=== PATIENT | male | born 1990 | race Caucasian/White ===

== ENCOUNTER 2024-12-14 22:20 | Emergency (ER) | payer MEDICAID, SELFPAY ==
[2024-12-14 22:22] VITALS: BMI 32.5
[2024-12-14 23:24] VITALS: BP 144/73; PULSE 76; RESP 20; TEMP 36.6; O2SAT 97
--- NOTE | 2024-12-15 02:59 | EDNOTE_ITS ---
<Statement entered by Amparo Carroll MD - 12/15/24 18:27> As co-signing physician, I was present and available for consult prn. I concur with the plan and care as documented by the midlevel provider. ED Headache RME/HPI General Chief Complaint: Headache Stated Complaint: HEADACHES FOR A MONTH Time Seen by Provider: 12/14/24 23:51 Arrival date/time: 12/14/24 22:20 34M with no significant PMH presents to ED with several months of intermittent MADISON, dizziness, and N/V. Patient has not symptoms currently. Patient has not seen PCP. Patient had a normal head CT here 2 years ago. Limitations: no limitations Related Data Home Medications ?Medication ?Instructions ?Recorded ?Confirmed ibuprofen 600 mg tablet 800 mg PO Q6HR PRN PAIN 05/0505/16/18 Previous Rx's ?Medication ?Instructions ?Recorded hydrocodone 5 mg-acetaminophen 325 1 tab PO QID PRN pa in #10 tabs 05/16/18 mg tablet ([place]) erythromycin 5 mg/gram (0.5 %) eye 0.5 inch ophthalmic (eye) TID #3.5 02/12/20 ointment grams hydrocodone 5 mg-acetaminophen 325 1 tab PO BID PRN pa in #10 tabs 06/24/20 mg tablet ([place]) ibuprofen 800 mg tablet 800 mg PO TID PRN pain #30 t abs 06/24/20 ibuprofen 800 mg tablet 800 mg PO TID PRN pain #30 t abs 10/22/21 clindamycin HCl 300 mg capsule 300 mg PO QID #40 caps 05/16/22 hydrocodone 5 mg-acetaminophen 325 1 tab PO BID PRN pa in #10 tabs 05/21/22 mg tablet ibuprofen 800 mg tablet 800 mg PO TID PRN pain #30 t abs 05/21/22 IBU 800 mg tablet (ibuprofen) 800 mg PO Q6H PRN pain # 30 tabs 10/11/22 Allergies Allergy/AdvReac Type Severity Reaction Status Date / Time No Known Allergies Allergy Verified 12/14/24 22:22 Review of Systems Review of Systems Systems Reviewed: All systems reviewed, normal except as documented Constitutional Constitutional: Reports system reviewed and no additional complaints, except as documented, Reports as per HPI, Denies fever(s) and Reports headache(s) ENT Ears, Nose, Mouth, and Throat: Denies disequilibrium, Reports headache(s) and Reports vertigo Cardiovascular Cardiovascular: Reports system reviewed and no additional complaints, except as documented, Denies chest pain and Denies dyspnea Respiratory Respiratory: Reports system reviewed and no additional complaints, except as documented, Denies cough and Denies dyspnea Gastrointestinal Gastrointestinal: Reports system reviewed and no additional complaints, except as documented, Reports as per HPI, Denies abdominal pain, Reports nausea and Reports vomiting Neurologic Neurologic: Reports system reviewed and no additional complaints, except as documented, Denies confusion, Denies disequilibrium, Reports headache(s) and Reports vertigo Psychiatric Psychiatric: Denies confusion Past Medical History Past Medical History CARDIAC: Negative Cardiac Disorders or Congestive Heart Failure RESPIRATORY: Negative Chronic Obstructive Pulmonary Disease (COPD) or Asthma GENITOURINARY: Negative Renal Disease ENDOCRINE: Negative Diabetes Mellitus Type 1 or Diabetes Mellitus Type 2 HEMATOLOGIC: Negative Sickle Cell Disease Social History SMOKING STATUS: Never smoker ED Exam General Limitations: Present no limitations General appearance: Present alert and in no apparent distress Head Head exam: Present atraumatic Eye Eye exam: Present normal appearance, PERRL and EOMI ENT ENT exam: Present normal exam, normal oropharynx and mucous membranes moist Neck Neck exam: Present normal inspection, full ROM and trachea midline Chest Chest inspection: Present normal inspection and symmetric chest wall rise Respiratory Respiratory exam: Present normal lung sounds bilaterally Cardiovascular Cardiovascular exam: Present regular rate, normal rhythm and normal heart sounds Abdominal Exam Abdominal exam: Present soft and normal bowel sounds Extremities Exam Extremities exam: Present normal inspection and full ROM Back Exam Back exam: Present normal inspection and full ROM Neurological Exam Neurological exam: Present alert, oriented X3 and CN II-XII intact Psychiatric Psychiatric exam: Present normal affect and normal mood Skin Skin exam: Present warm, dry, intact and normal color Course Quality Measures none Vital Signs Vital signs: Vital Signs Temperature 97.8 F 12/14/24 23:24 Pulse Rate 76 12/14/24 23:24 Respiratory Rate 20 12/14/24 23:24 Blood Pressure 144/73 H 12/14/24 23:24 Pulse Oximetry (%) 97 12/14/24 23:24 Oxygen Delivery Method Room Air 12/14/24 23:24 O2 at 97% on RA and WNLs Headache MDM Narrative MDM Narrative:: 34M with no significant PMH presents to ED with several months of intermittent MADISON, dizziness, and N/V. Patient has not symptoms currently. Patient has not seen PCP. Patient had a normal head CT here 2 years ago. Physical exam reveals normal pupil response and EOM. CN II-XII grossly intact. Patient is afebrile, calm, and alert. 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 Patient data External records reviewed:: [facility] previous records Clinical information provided by:: patient Social determinants that could affect healthcare access:: none Patient has the following chronic illnesses:: none How is presenting disease/condition affected by chronic disease/condition?: no chronic disease Evaluation data The following diagnostics were reviewed and interpreted by me:: other (specify) (none) Lab and/or radiology exams considered but not ordered:: not ordered Interpretation Summary: n/a Medications / Prescriptions Medications or Prescriptions considered but not ordered:: not ordered Medication administrations:: n/a Consultations Consultation(s) initiated? (list below): No Diagnosis Differential diagnosis headache: migraine, tension headache, subarachnoid hemorrhage, headache, meningitis, sinusitis and postconcussion syndrome Most likely diagnosis given after review of the tests above:: MADISON Admission Indicated Admission indicated?: not indicated Admission Request Was there a request for admission?: No Disposition Plan Disposition Plan: Discharge Discharge Attestation Discharge Attestation: The patient and all family members were given an opportunity to ask questions and understood the discharge instructions. Discharge instructions specifically effects, indications for sooner follow up or return to the emergency department, and the expected course of current diagnosis. Patient condition: Stable Discharge Plan Plan Patient Disposition: HOME (Self Care) Discharge Disposition comment: Stable Prescriptions/Referrals Prescriptions/Med Rec: No Action ibuprofen 600 MG tablet 800 mg PO Q6HR PRN (Reason: PAIN) hydrocodone-acetaminophen [[place]] 5-325 mg tablet 1 tab PO QID MDD 3 PRN (Reason: pain) Qty: 10 0RF ibuprofen 800 mg tablet 800 mg PO TID PRN (Reason: pain) Qty: 30 0RF hydrocodone-acetaminophen [[place]] 5-325 mg tablet 1 tab PO BID MDD 10mg PRN (Reason: pain) Qty: 10 0RF erythromycin 5 mg/gram (0.5 %) ointment 0.5 inch OPHTHALMIC TID Qty: 3.5 0RF ibuprofen 800 mg tablet 800 mg PO TID PRN (Reason: pain) Qty: 30 0RF clindamycin HCl 300 mg capsule 300 mg PO QID Qty: 40 0RF ibuprofen 800 mg tablet 800 mg PO TID PRN (Reason: pain) Qty: 30 0RF hydrocodone-acetaminophen 5-325 mg tablet 1 tab PO BID MDD 10 PRN (Reason: pain) Qty: 10 0RF ibuprofen [IBU] 800 mg tablet 800 mg PO Q6H PRN (Reason: pain) Qty: 30 0RF Problem List Clinical Impression: Headache Patient/Caregiver Discharge Instructions Education Materials: Self-Care for Headaches Additional Instructions: Please follow-up with PCP within 24-48 hours and return immediately if symptoms worsen. Recommend seeing PCP for MRI and/or referral to neurology. Next time you have pain, take an NSAID rather than Tylenol. Print Language: Maori Stand Alone Forms: Patient Portal Info Letter PA/CORRUGATOR Supervising Physician CYRIL/CHOCO Supervising Physician: Dr. Carroll
== END 2024-12-15 00:39 | disposition home or self-care (01) ==
LOC: SERX 12-15 00:32
PROVIDERS: Emergency Provider Emergency Medicine; PCP Family Medicine
DX: R51.9 Headache, unspecified (principal)
CPT/HCPCS: 99281

== ENCOUNTER 2025-02-06 05:29 | Emergency (ER) | payer MEDICAID, SELFPAY ==
[2025-02-06 05:30] VITALS: BMI 32.3
[2025-02-06 05:41] VITALS: BP 160/99; PULSE 57; RESP 19; TEMP 36.4; O2SAT 97
--- NOTE | 2025-02-06 06:00 | XR_ITS ---
Examination: CT abdomen and pelvis without contrast. Coronal 3-D reconstructions. Sagittal 2-D reconstructions. Date and time of exam:February 06, 2025, 0615 hours INDICATIONS: Onset right flank pain today, a history renal calculi, right hydronephrosis reported several millimeter calculus distal right ureter on CT stone study October 29, 2022 CTDI: vol (mGy): 11.3 DLP: (mGycm): 692 Technique: Axial images of the abdomen have been obtained, 3 mm slice thickness Intravenous contrast material has not been administered. Low dose protocols were performed. One or more of the following dose reduction techniques were used; automated exposure control, adjustment of the mA and/or KV according to patient size, use of iterative reconstruction technique. Findings: No focal liver lesions No gallstones Splenomegaly 15 cm No pancreatic or adrenal mass Bilateral 1 to 3 mm renal calculi Minimal right hydronephrosis secondary to 5 mm proximal right ureteral calculus Aorta normal size Normal appendix No bowel obstruction Contracted urinary bladder Moderate diffuse lumbar degenerative disc disease Impression : Significant splenomegaly. Bilateral renal calculi Minimal right hydronephrosis, 5 mm proximal right ureteral calculus
--- NOTE | 2025-02-06 06:02 | PD.EDRME ---
Rapid Medical Screening Exam RME Arrival date/time: 02/06/25 05:29 Chief Complaint: Abdominal Pain Time Seen by Provider: 02/06/25 06:00 Vital signs: Vital Signs Temperature 97.6 F 02/06/25 05:41 Pulse Rate 57 L 02/06/25 05:41 Respiratory Rate 19 02/06/25 05:41 Blood Pressure 160/99 H 02/06/25 05:41 Pulse Oximetry (%) 97 02/06/25 05:41 Oxygen Delivery Method Room Air 02/06/25 05:41 Vital signs reviewed by provider: Yes RME Narrative: 34-year-old male with past medical history of renal calculi presents to the ED with a complaint of right flank pain, suprapubic pain and difficulty with urination. He denies fever or chills but has felt diaphoresis and nauseated with the waves of severe pain. The pain began last night. I have greeted and performed a focused initial assessment of this patient. A comprehensive ED assessment and evaluation of the patient, analysis of all test results, and completion of the medical decision making process will be conducted by additional ED providers.
[2025-02-06 06:56] LABS: Collection Type, Urine Clean Catch
[2025-02-06] MEDS: TAMSULOSIN HCL 0.4 MG CAPSULE PO (07:30)
[2025-02-06] MEDS: KETOROLAC INJ 30 MG/ML VIAL IVP (07:30)
[2025-02-06] MEDS: SODIUM CHLORIDE 0.9% 1000 ML 1,000 ML 999 ML IV (07:31)
[2025-02-06] MEDS: ONDANSETRON INJ 2 MG/ML INJ 2 ML 4 MG IVP (07:31)
[2025-02-06 07:37] LABS: Bilirubin,Urine Negative (Negative); Blood,Urine 3+ (Negative); Color,Urine Yellow (Lt Yel-Yel); Culture Indicated,Urine Not Indicated; Glucose, Urine Negative (Negative); Ketones,Urine Negative (Negative); Leukocyte Esterase,Urine Negative (Negative); Nitrite,Urine Negative (Negative); PH,Urine 5.5 (5.0-7.0); Protein,Urine Trace (Neg - Trace); RBC,Urine 794 /hpf (0-3); Specific Gravity,Urine 1.027 (1.001-1.035); Squamous Epithelial Cell,Urine < 1 /hpf (0-5); Urobilinogen,Urine Negative mg/dL (0.0-1.0); WBC,Urine 3 /hpf (0-5)
[2025-02-06 08:27] LABS: Clarity,Urine Hazy (Clear/Hazy)
[2025-02-06 08:46] VITALS: BP 128/83; PULSE 54; RESP 12; TEMP 36.8; O2SAT 99
--- NOTE | 2025-02-06 08:55 | EDNOTE_ITS ---
ED Male Genitalurinary RME/HPI General Chief complaint: Abdominal Pain Stated complaint: R FLANK PAIN Time Seen by Provider: 02/06/25 06:00 Arrival date/time: 02/06/25 05:29 RME / HPI RME / HPI Narrative: 34-year-old male with past medical history of renal calculi presents to the ED with a complaint of right flank pain, suprapubic pain and difficulty with urination. He denies fever or chills but has felt diaphoresis and nauseated wit h the waves of severe pain. The pain began last night. I have greeted and performed a focused initial assessment of this patient. A comprehensive ED assessment and evaluation of the patient, analysis of all test results, and completion of the medical decision making process will be conducted by additional ED providers. DR. CARROLL MAIN ED EVALUATION 34 year male patient with history of kidney stones presents to the ED for evaluation of right flank pain beginning last night. Described as colicky in sensation and rating as moderate to severe. Accompanied by nausea and vomiting when pain is at its worst. Reports symptoms today are similar to previous kidney stones, last occurring ~2 years ago. Denies fever, chills, sweating. Denies chest pain, cough, shortness of breath. Denies diarrhea, constipation. Denies dysuria or hematuria. Related Data Home Medications ?Medication ?Instructions ?Recorded ?Confirmed ibuprofen 600 mg tablet 800 mg PO Q6HR PRN PAIN 05/0505/16/18 Previous Rx's ?Medication ?Instructions ?Recorded hydrocodone 5 mg-acetaminophen 325 1 tab PO QID PRN pa in #10 tabs 05/16/18 mg tablet ([place]) erythromycin 5 mg/gram (0.5 %) eye 0.5 inch ophthalmic (eye) TID #3.5 02/12/20 ointment grams hydrocodone 5 mg-acetaminophen 325 1 tab PO BID PRN pa in #10 tabs 06/24/20 mg tablet ([place]) ibuprofen 800 mg tablet 800 mg PO TID PRN pain #30 t abs 06/24/20 ibuprofen 800 mg tablet 800 mg PO TID PRN pain #30 t abs 10/22/21 clindamycin HCl 300 mg capsule 300 mg PO QID #40 caps 05/16/22 hydrocodone 5 mg-acetaminophen 325 1 tab PO BID PRN pa in #10 tabs 05/21/22 mg tablet ibuprofen 800 mg tablet 800 mg PO TID PRN pain #30 t abs 05/21/22 IBU 800 mg tablet (ibuprofen) 800 mg PO Q6H PRN pain # 30 tabs 10/11/22 ibuprofen 600 mg tablet 600 mg PO Q6H PRN pain #30 t abs 02/06/25 tamsulosin 0.4 mg capsule 0.4 mg PO QDAY #14 caps 11/26 Allergies Allergy/AdvReac Type Severity Reaction Status Date / Time No Known Allergies Allergy Verified 02/06/25 05:34 Review of Systems Review of Systems Systems Reviewed: All systems reviewed, normal except as documented Past Medical History Past Medical History CARDIAC: Negative Cardiac Disorders GENITOURINARY: Positive Kidney Stones; Negative Renal Disease Social History SMOKING STATUS: Never smoker ED Exam Narrative Physical exam: GENERAL APPEARANCE: alert and oriented x 4, well-developed, well-nourished, no acute distress HEENT: Normocephalic, atraumatic; pupils equal, round, reactive to light; EOMI; mucous membranes pink, moist; oropharynx clear NECK: Supple LUNGS: CTABL; no wheezes, no rales, no rhonchi HEART: Regular rate, regular rhythm; normal S1, S2; no murmurs ABDOMEN: non distended; normal BS; soft, no tenderness, no guarding, no rebound; no masses, no organomegaly, no hernia BACK: no CVA tenderness EXTREMITIES: atraumatic; no edema NEUROLOGIC: awake; alert and oriented x4; cranial nerves II-XII grossly intact; no focal sensory or motor deficits PSYCHIATRIC: appropriate mood and affect SKIN: warm, dry, normal color; no rashes Course Quality Measures none Orders Category Date Time Status IV [Insert IV] NOW Care 02/06/25 06:[address] abdomen pelvis wo con Stat Exams 02/06/25 06:00 Completed Urinalysis, C/S if Indicated Stat Lab 02/06/25 06:48 Completed Ketorolac Inj [Toradol Inj] Med 02/06/25 06:00 Discontinued 30 mg IVP X1 ONE Ondansetron Inj [Zofran Inj] Med 02/06/25 06:00 Discontinued 4 mg IVP X1 ONE Sodium Chloride 0.9% 1000 ml [Ns] 1,000 ml Med 02/06/25 06:00 Discontinued IV 999 mls/hr Tamsulosin HCl [Flomax] Med 02/06/25 06:00 Discontinued 0.4 mg PO X1 ONE Vital Signs Vital signs: Vital Signs Temperature 97.6 F 02/06/25 05:41 Pulse Rate 57 L 02/06/25 05:41 Respiratory Rate 19 02/06/25 05:41 Blood Pressure 160/99 H 02/06/25 05:41 Pulse Oximetry (%) 97 02/06/25 05:41 Oxygen Delivery Method Room Air 02/06/25 05:41 Pulse ox is 97% on room air which is adequate. Urogenital - Male MDM Narrative MDM Narrative:: Chapis Benavidez am scribing for and in the presence of Dr. Carroll. 34 year male patient with history of kidney stones presents to the ED for evaluation of right flank pain beginning last night. Reports symptoms today are similar to previous kidney stones, last occurring ~[address] scan of abdomen shows a 5mm proximal right ureteral calculus. Urinalysis shows elevated RBCs at 794, consistent with kidney stone. No signs of infection. Patient was advised to increase water intake and return if symptoms do not improve. Patient is in agreement with plan. Patient data External records reviewed:: [facility] previous records (I reviewed ED visit on 12/14/2024 for headache ) Clinical information provided by:: patient Social determinants that could affect healthcare access:: none Patient has the following chronic illnesses:: Kidney stones How is presenting disease/condition affected by chronic disease/condition?: exacerbated by Evaluation data The following diagnostics were reviewed and interpreted by me:: lab results Lab and/or radiology exams considered but not ordered:: None Interpretation Summary: Ordering Physician: Megan Singh PA-C Date of Service: 02/06/25 Procedure(s): CT abdomen pelvis wo [facility] Accession Number(s): [id number] cc: Bry Tsang PA-C; Jose Corona MD; Megan Singh PA-C~ Examination: CT abdomen and pelvis without contrast. Coronal 3-D reconstructions. Sagittal 2-D reconstructions. Date and time of exam:February 06, 2025, 0615 hours INDICATIONS: Onset right flank pain today, a history renal calculi, right hydronephrosis reported several millimeter calculus distal right ureter on CT stone study October 29, 2022 CTDI: vol (mGy): 11.3 DLP: (mGycm): 692 Technique: Axial images of the abdomen have been obtained, 3 mm slice thickness Intravenous contrast material has not been administered. Low dose protocols were performed. One or more of the following dose reduction techniques were used; automated exposure control, adjustment of the mA and/or KV according to patient size, use of iterative reconstruction technique. Findings: No focal liver lesions No gallstones Splenomegaly 15 cm No pancreatic or adrenal mass Bilateral 1 to 3 mm renal calculi Minimal right hydronephrosis secondary to 5 mm proximal right ureteral calculus Aorta normal size Normal appendix No bowel obstruction Contracted urinary bladder Moderate diffuse lumbar degenerative disc disease Impression : Significant splenomegaly. Bilateral renal calculi Minimal right hydronephrosis, 5 mm proximal right ureteral calculus Dictated By: Jose Corona MD Signed By: <Electronically signed by Jose Corona MD in [place]> 02/06/25 0736 Medications / Prescriptions Medications or Prescriptions considered but not ordered:: None Medication administrations:: Medication Administration History Discontinued Medications Sodium Chloride (Ns) 1,000 mls @ 999 mls/hr IV .Q1H1M ONE Stop: 02/06/25 07:00 Last Infusion: 02/06/25 08:17 Dose: Infused Documented By: Admin: 02/06/25 07:31 Dose: 999 mls/hr Documented By: JOSEPHINE Ketorolac Tromethamine (Ketorolac Inj 30 Mg/Ml Vial) 30 mg IVP X1 ONE Stop: 02/06/25 06:01 Last Admin: 02/06/25 07:30 Dose: 30 mg Documented By: JOSEPHINE Ondansetron HCl (Ondansetron Inj 2 Mg/Ml Inj 2 Ml) 4 mg IVP X1 ONE; Protocol Stop: 02/06/25 06:01 Last Admin: 02/06/25 07:31 Dose: 4 mg Documented By: JOSEPHINE Tamsulosin HCl (Tamsulosin Hcl 0.4 Mg Capsule) 0.4 mg PO X1 ONE Stop: 02/06/25 06:01 Last Admin: 02/06/25 07:30 Dose: 0.4 mg Documented By: JOSEPHINE See above Consultations Consultation(s) initiated? (list below): No Diagnosis Urogenital Male Differential Diagnosis: urinary tract infection, acute retention of urine and other (Kidney stone, pyelonephritis ) Most likely diagnosis given after review of the tests above:: Right kidney stone Admission Indicated Admission indicated?: not indicated Admission Request Was there a request for admission?: No Disposition Plan Disposition Plan: Discharge Discharge Attestation Discharge Attestation: The patient and all family members were given an opportunity to ask questions and understood the discharge instructions. Discharge instructions specifically effects, indications for sooner follow up or return to the emergency department, and the expected course of current diagnosis. Patient condition: Stable Discharge Plan Prescriptions/Referrals Prescriptions/Med Rec: New tamsulosin 0.4 mg capsule 0.4 mg PO QDAY Qty: 14 0RF ibuprofen 600 mg tablet 600 mg PO Q6H PRN (Reason: pain) Qty: 30 0RF No Action ibuprofen 600 MG tablet 800 mg PO Q6HR PRN (Reason: PAIN) hydrocodone-acetaminophen [[place]] 5-325 mg tablet 1 tab PO QID MDD 3 PRN (Reason: pain) Qty: 10 0RF ibuprofen 800 mg tablet 800 mg PO TID PRN (Reason: pain) Qty: 30 0RF hydrocodone-acetaminophen [[place]] 5-325 mg tablet 1 tab PO BID MDD 10mg PRN (Reason: pain) Qty: 10 0RF erythromycin 5 mg/gram (0.5 %) ointment 0.5 inch OPHTHALMIC TID Qty: 3.5 0RF ibuprofen 800 mg tablet 800 mg PO TID PRN (Reason: pain) Qty: 30 0RF clindamycin HCl 300 mg capsule 300 mg PO QID Qty: 40 0RF ibuprofen 800 mg tablet 800 mg PO TID PRN (Reason: pain) Qty: 30 0RF hydrocodone-acetaminophen 5-325 mg tablet 1 tab PO BID MDD 10 PRN (Reason: pain) Qty: 10 0RF ibuprofen [IBU] 800 mg tablet 800 mg PO Q6H PRN (Reason: pain) Qty: 30 0RF Referrals: Bry Tsang PA-C [Primary Care Provider] - In 1 week Problem List Clinical Impression: Right ureteral calculus Patient/Caregiver Discharge Instructions Education Materials: ED Kidney Stone w/ Colic Print Language: [place]
== END 2025-02-06 09:27 | disposition home or self-care (01) ==
PROVIDERS: Physician Assistant; Emergency Provider Emergency Medicine; PCP Physician Assistant
DX: N13.2 Hydronephrosis with renal and ureteral calculous obstruction (principal); R16.1 Splenomegaly, not elsewhere classified
CPT/HCPCS: 74176; 81001; 96361; 96374; 96375; 99283; J1885; J2405; J7030; A9270

== ENCOUNTER 2025-04-11 02:17 | Emergency (ER) | payer MEDICAID, SELFPAY ==
[2025-04-11 02:18] VITALS: BP 151/116; PULSE 52; RESP 20; TEMP 37; O2SAT 98; BMI 33.0
--- NOTE | 2025-04-11 02:41 | PD.EDDENTL ---
ED Dental RME/HPI General Chief complaint: Dental/Oral/Throat Stated complaint: TOOTH PAIN Time Seen by Provider: 04/11/25 02:39 Arrival date/time: 04/11/25 02:17 35M with no significant PMH presents to ED with R upper dental pain. Limitations: no limitations Related Data Home Medications ?Medication ?Instructions ?Recorded ?Confirmed ibuprofen 600 mg tablet 800 mg PO Q6HR PRN PAIN 05/16/18 05/16/18 Previous Rx's ?Medication ?Instructions ?Recorded hydrocodone 5 mg-acetaminophen 325 1 tab PO QID PRN pain #10 tabs 05/16/18 mg tablet ([place]) erythromycin 5 mg/gram (0.5 %) eye 0.5 inch ophthalmic (eye) TID #3.5 02/12/20 ointment grams hydrocodone 5 mg-acetaminophen 325 1 tab PO BID PRN pain #10 tabs 06/24/20 mg tablet ([place]) ibuprofen 800 mg tablet 800 mg PO TID PRN pain #30 tabs 06/24/20 ibuprofen 800 mg tablet 800 mg PO TID PRN pain #30 tabs 10/22/21 clindamycin HCl 300 mg capsule 300 mg PO QID #40 caps 05/16/22 hydrocodone 5 mg-acetaminophen 325 1 tab PO BID PRN pain #10 tabs 05/21/22 mg tablet ibuprofen 800 mg tablet 800 mg PO TID PRN pain #30 tabs 05/21/22 IBU 800 mg tablet (ibuprofen) 800 mg PO Q6H PRN pain #30 tabs 10/11/22 ibuprofen 600 mg tablet 600 mg PO Q6H PRN pain #30 tabs 02/06/25 tamsulosin 0.4 mg capsule 0.4 mg PO QDAY #14 caps 02/06/25 amoxicillin 875 mg-potassium 1 tab PO BID 7 days #14 tabs 04/11/25 clavulanate 125 mg tablet Allergies Allergy/AdvReac Type Severity Reaction Status Date / Time No Known Allergies Allergy Verified 02/06/25 05:34 Review of Systems Review of Systems Systems Reviewed: All systems reviewed, normal except as documented ENT Ears, Nose, Mouth, and Throat: Reports as per HPI and Reports dental pain Past Medical History Past Medical History CARDIAC: Negative Cardiac Disorders or Congestive Heart Failure RESPIRATORY: Negative Chronic Obstructive Pulmonary Disease (COPD) or Asthma GENITOURINARY: Positive Kidney Stones; Negative Renal Disease ENDOCRINE: Negative Diabetes Mellitus Type 1 or Diabetes Mellitus Type 2 HEMATOLOGIC: Negative Sickle Cell Disease Social History SMOKING STATUS: Never smoker ED Exam General Limitations: Present no limitations General appearance: Present alert and in no apparent distress Head Head exam: Present atraumatic ENT ENT exam: Present mucous membranes moist Expanded ENT Exam Teeth exam: Present gingival swelling Neck Neck exam: Present normal inspection, full ROM and trachea midline Neurological Exam Neurological exam: Present alert and oriented X3 Psychiatric Psychiatric exam: Present normal affect and normal mood Skin Skin exam: Present warm, dry, intact and normal color Course Quality Measures none Orders Category Date Time Status Amoxicillin/Pot Clav 875 [Augmentin 875] Med 04/11/25 02:39 Once 1 tab PO X1 ONE Ketorolac Inj [Toradol Inj] Med 04/11/25 02:39 Once 60 mg IM X1 ONE Vital Signs Vital signs: Vital Signs Temperature 98.6 F 04/11/25 02:18 Pulse Rate 52 L 04/11/25 02:18 Respiratory Rate 20 04/11/25 02:18 Blood Pressure 151/116 H 04/11/25 02:18 Pulse Oximetry (%) 98 04/11/25 02:18 Oxygen Delivery Method Room Air 04/11/25 02:18 O2 at 98% on RA and WNLs Dental / Oral MDM Narrative MDM Narrative:: 35M with no significant PMH presents to ED with R upper dental pain. Physical exam reveals some R gingival swelling. Patient is afebrile, calm, and alert. Meds and counseling center manager given. Patient data External records reviewed:: [facility] previous records Clinical information provided by:: patient Social determinants that could affect healthcare access:: none Patient has the following chronic illnesses:: none How is presenting disease/condition affected by chronic disease/condition?: no chronic disease Evaluation data The following diagnostics were reviewed and interpreted by me:: other (specify) (none) Lab and/or radiology exams considered but not ordered:: not ordered Interpretation Summary: n/a Medications / Prescriptions Medications or Prescriptions considered but not ordered:: ordered Medication administrations:: Medication Administration History Amoxicillin/Clavulanate Potassium (Amoxicillin/Pot Clav 875 Tablet) 1 tab PO X1 ONE Stop: 04/11/25 02:40 Ketorolac Tromethamine (Ketorolac Inj 60 Mg/2 Ml Vial) 60 mg IM X1 ONE Stop: 04/11/25 02:40 above Consultations Consultation(s) initiated? (list below): No Diagnosis Dental Differential Diagnosis: gingival abscess, dental caries, toothache, dental abscess, fracture of tooth and aphthous ulcer Most likely diagnosis given after review of the tests above:: toothache Admission Indicated Admission indicated?: not indicated Admission Request Was there a request for admission?: No Disposition Plan Disposition Plan: Discharge Discharge Attestation Discharge Attestation: The patient and all family members were given an opportunity to ask questions and understood the discharge instructions. Discharge instructions specifically effects, indications for sooner follow up or return to the emergency department, and the expected course of current diagnosis. Patient condition: Stable Discharge Plan Plan Patient Disposition: HOME (Self Care) Discharge Disposition comment: Stable Prescriptions/Referrals Prescriptions/Med Rec: New amoxicillin-pot clavulanate 875-125 mg tablet 1 tab PO BID 7 Days Qty: 14 0RF No Action ibuprofen 600 MG tablet 800 mg PO Q6HR PRN (Reason: PAIN) hydrocodone-acetaminophen [[place]] 5-325 mg tablet 1 tab PO QID MDD 3 PRN (Reason: pain) Qty: 10 0RF ibuprofen 800 mg tablet 800 mg PO TID PRN (Reason: pain) Qty: 30 0RF hydrocodone-acetaminophen [[place]] 5-325 mg tablet 1 tab PO BID MDD 10mg PRN (Reason: pain) Qty: 10 0RF erythromycin 5 mg/gram (0.5 %) ointment 0.5 inch OPHTHALMIC TID Qty: 3.5 0RF ibuprofen 800 mg tablet 800 mg PO TID PRN (Reason: pain) Qty: 30 0RF clindamycin HCl 300 mg capsule 300 mg PO QID Qty: 40 0RF ibuprofen 800 mg tablet 800 mg PO TID PRN (Reason: pain) Qty: 30 0RF hydrocodone-acetaminophen 5-325 mg tablet 1 tab PO BID MDD 10 PRN (Reason: pain) Qty: 10 0RF ibuprofen [IBU] 800 mg tablet 800 mg PO Q6H PRN (Reason: pain) Qty: 30 0RF tamsulosin 0.4 mg capsule 0.4 mg PO QDAY Qty: 14 0RF ibuprofen 600 mg tablet 600 mg PO Q6H PRN (Reason: pain) Qty: 30 0RF Problem List Clinical Impression: Toothache Patient/Caregiver Discharge Instructions Education Materials: ED Dental Pain Additional Instructions: Please follow-up with PCP within 24-48 hours and return immediately if symptoms worsen. See dentist soon. Take new ABX. Do not take with penicillin. Print Language: Stateless Stand Alone Forms: Patient Portal Info Letter PA/TRUCKING MANAGER Supervising Physician CYRIL/TRUCKING MANAGER Supervising Physician: Dr. Elizondo
[2025-04-11] MEDS: KETOROLAC INJ 60 MG/2 ML VIAL IM (03:11)
[2025-04-11] MEDS: AMOXICILLIN/POT CLAV 875 TABLET 1 TAB PO (03:11)
== END 2025-04-11 03:15 | disposition home or self-care (01) ==
LOC: SERX 03:00
PROVIDERS: Emergency Provider Emergency Medicine; PCP Physician Assistant
DX: K08.89 Other specified disorders of teeth and supporting structures (principal)
CPT/HCPCS: 96372; 99283; J1885; A9270

== ENCOUNTER 2025-06-24 02:24 | Emergency (ER) | payer MEDICAID, SELFPAY ==
[2025-06-24 02:24] VITALS: BMI 32.3
[2025-06-24 02:40] VITALS: BP 142/83; PULSE 55; RESP 18; TEMP 36.8; O2SAT 97
--- NOTE | 2025-06-24 02:53 | XR_ITS ---
Examination: CT abdomen and pelvis without contrast. Coronal 3-D reconstructions. Sagittal 2-D reconstructions. Date and time of exam: June 24, 2025, 0305 hours, comparison February 06, 2025 INDICATIONS: Right flank pain beginning today, history kidney stones 20 years CTDI: vol (mGy): 11.41 DLP: (mGycm): 695 Technique: Axial images of the abdomen have been obtained, 3 mm slice thickness Intravenous contrast material has not been administered. Low dose protocols were performed. One or more of the following dose reduction techniques were used; automated exposure control, adjustment of the mA and/or KV according to patient size, use of iterative reconstruction technique. Findings: No focal liver or splenic lesions No gallstones Negative for pancreatitis Bilateral subcentimeter renal calculi Moderate right hydronephrosis 6 mm distal right ureteral calculus image 165 No bladder mass or bladder calculi Normal appendix Diffuse mild to moderate lumbar degenerative disc disease IMPRESSION: Moderate right hydronephrosis secondary to 6 mm distal right ureteral calculus
--- NOTE | 2025-06-24 02:53 | PD.EDRME ---
Rapid Medical Screening Exam RME Arrival date/time: 06/24/25 02:24 This is a case of 35-year-old male with history of kidney stone came in in the emergency room due to right flank pain radiating to the right lower abdomen for 1 day with nausea vomiting worsening of the symptoms this patient decided to start consulted in the emergency room Chief Complaint: Back Pain/Injury Time Seen by Provider: 06/24/25 02:51 Vital signs: Vital Signs Temperature 98.2 F 06/24/25 02:40 Pulse Rate 55 L 06/24/25 02:40 Respiratory Rate 18 06/24/25 02:40 Blood Pressure 142/83 H 06/24/25 02:40 Pulse Oximetry (%) 97 06/24/25 02:40 Oxygen Delivery Method Room Air 06/24/25 02:40 Exam: Tenderness right lower abdomen right flank no guarding no rebound no rigidity Clinical Impression: Abdominal pain
[2025-06-24 04:00] LABS: Basophils # (Auto) 0.1 Thou/mm3 (0.0-0.2); Basophils % (Auto) 1 % (0-2.5); Eosinophils # (Auto) 0.3 Thou/mm3 (0.0-0.5); Eosinophils % (Auto) 4 % (0-10); Hematocrit 45.4 % (41.0-53.0); Hemoglobin 15.3 g/dL (13.5-16.0); Immature Granulocytes Auto 0.01 Thou/mm3 (0.00-0.00); Lymphocytes # (Auto) 1.8 Thou/mm3 (1.0-4.8); Lymphocytes % (Auto) 30 % (10-50); Mean Corpuscular HGB Conc 33.7 g/dl (31.0-37.0); Mean Corpuscular Hemoglobin 29.3 pg (25.0-35.0); Mean Corpuscular Volume 87 fL (80-100); Monocytes # (Auto) 0.4 Thou/mm3 (0.0-0.8); Monocytes % (Auto) 6 % (0-12); Neutrophils # (Auto) 3.6 Thou/mm3 (1.8-7.7); Neutrophils % (Auto) 59 % (37-80); Nucleated Red Blood Cell # 0.00 Thou/mm3 (0.00-0.00); Nucleated Red Blood Cell % 0 /100 WBC (0); Platelet Count 144 Thou/mm3 (140-440); RDW Standard Deviation 40.7 fL (35.1-43.9); Red Blood Count 5.22 Miln/mm3 (4.50-5.90); White Blood Count 6.1 Thou/mm3 (3.8-10.6)
--- NOTE | 2025-06-24 04:04 | PRELIM_ITS ---
CT scan of the abdomen and pelvis without intravenous contrast (axial sections with sagittal and coronal reformats) June 24, 2025 0305 hours Clinical History: kidney stone Comparison: None Findings: The lung bases are clear. Liver is enlarged, 20 cm long. Spleen is enlarged, 13.5 cm long. Gallbladder, pancreas, adrenal glands are normal. Nonobstructing bilateral renal calculi. No left hydronephrosis. Moderate right hydroureteronephrosis with a 6 mm calculus in the pelvic ureter (image 166). The urinary bladder is normal. No free intraperitoneal air or fluid. Bowel caliber is normal. The appendix is normal, best seen on ([id number]). The abdominal wall is unremarkable. No acute osseous process. Impression: 1. 6 mm calculus in the distal right ureter with moderate hydroureteronephrosis. 2. Nonobstructing bilateral renal calculi. 3. Hepatosplenomegaly. Report Electronically Signed By: Boyd Brunson 06/24/2025 4:03:11 AM [EST]
[2025-06-24 04:23] LABS: Alanine Aminotransferase 22 U/L (10-49); Albumin, Serum 4.5 gm/dL (3.5-5.0); Albumin/Globulin Ratio 2.0 (1.2-2.2); Alkaline Phosphatase 71 U/L (46-116); Anion Gap 8 (7-16); Aspartate Amino Transferase 18 U/L (0-34); BUN/Creatinine Ratio 11 Ratio (12-20); Bilirubin,Total 1.2 mg/dL (0.3-1.2); Blood Urea Nitrogen 13 mg/dL (9-23); Calcium 9.3 mg/dL (8.3-10.6); Calcium (Corrected) 9.3 mg/dL (8.5-10.1); Carbon Dioxide 32.1 mMol/L (20.0-31.0); Chloride 106 mMol/L (98-107); Creatinine (Component) 1.2 mg/dL (0.6-1.3); Estimated Creatinine Clearance 102.8 mL/min (>60); Globulin 2.2 gm/dL (2.3-3.5); Glucose 106 mg/dL (74-106); Lipase 52 U/L (12-53); Osmolality,Calculated 290 (275-295); Potassium 3.9 mMol/L (3.4-5.1); Sodium 146 mMol/L (136-145); Total Protein 6.7 gm/dL (5.7-8.2); eGFR > 60 See Note
[2025-06-24] MEDS: ONDANSETRON ODT 4 MG TABRAP PO (05:02)
[2025-06-24 05:20] LABS: Collection Type, Urine Clean Catch
[2025-06-24 05:26] LABS: Bilirubin,Urine Negative (Negative); Blood,Urine 1+ (Negative); Clarity,Urine Clear (Clear/Hazy); Color,Urine Colorless (Lt Yel-Yel); Glucose, Urine Negative (Negative); Hyaline Casts,Urine < 1 /hpf (0-1); Ketones,Urine Negative (Negative); Leukocyte Esterase,Urine Negative (Negative); Nitrite,Urine Negative (Negative); PH,Urine 6.0 (5.0-7.0); Protein,Urine Negative (Neg - Trace); RBC,Urine 1 /hpf (0-3); Specific Gravity,Urine 1.007 (1.001-1.035); Squamous Epithelial Cell,Urine < 1 /hpf (0-5); Urobilinogen,Urine Negative mg/dL (0.0-1.0); WBC,Urine 2 /hpf (0-5)
--- NOTE | 2025-06-24 05:38 | EDNOTE_ITS ---
ED Abdominal Pain RME/HPI General Chief Complaint: Back Pain/Injury Stated complaint: RIGHT KIDNEY PAIN Time seen by provider: 06/24/25 02:51 Arrival date/time: 06/24/25 02:24 This is a case of 35-year-old male with history of kidney stone came in in the emergency room due to bilateral flank pain for 3 days with associated nausea vomiting worsening of the symptoms this patient decided to sought consult here in the emergency room RME / HPI RME / HPI narrative: 06/24/25 02:24 This is a case of 35-year-old male with history of kidney stone came in in the emergency room due to right flank pain radiating to the right lower abdomen for 1 day with nausea vomiting worsening of the symptoms this patient decided to start consulted in the emergency room Exam: Tenderness right lower abdomen right flank no guarding no rebound no rigidity Impression: Abdominal pain Related Data Home Medications ?Medication ?Instructions ?Recorded ?Confirmed ibuprofen 600 mg tablet 800 mg PO Q6HR PRN PAIN 05/0505/16/18 Previous Rx's ?Medication ?Instructions ?Recorded hydrocodone 5 mg-acetaminophen 325 1 tab PO QID PRN pa in #10 tabs 05/16/18 mg tablet ([place]) erythromycin 5 mg/gram (0.5 %) eye 0.5 inch ophthalmic (eye) TID #3.5 02/12/20 ointment grams hydrocodone 5 mg-acetaminophen 325 1 tab PO BID PRN pa in #10 tabs 06/24/20 mg tablet ([place]) ibuprofen 800 mg tablet 800 mg PO TID PRN pain #30 t abs 06/24/20 ibuprofen 800 mg tablet 800 mg PO TID PRN pain #30 t abs 10/22/21 clindamycin HCl 300 mg capsule 300 mg PO QID #40 caps 05/16/22 hydrocodone 5 mg-acetaminophen 325 1 tab PO BID PRN pa in #10 tabs 05/21/22 mg tablet ibuprofen 800 mg tablet 800 mg PO TID PRN pain #30 t abs 05/21/22 IBU 800 mg tablet (ibuprofen) 800 mg PO Q6H PRN pain # 30 tabs 10/11/22 ibuprofen 600 mg tablet 600 mg PO Q6H PRN pain #30 t abs 02/06/25 tamsulosin 0.4 mg capsule 0.4 mg PO QDAY #14 caps 11/26 hydrocodone 5 mg-acetaminophen 325 1 tab PO Q6H PRN pa in #20 tabs 06/24/25 mg tablet ondansetron 4 mg disintegrating 4 mg PO Q8H #20 tabs 1 08/25/24 tablet tamsulosin 0.4 mg capsule 0.4 mg PO QDAY 10 days #10 c aps 06/24/25 Allergies Allergy/AdvReac Type Severity Reaction Status Date / Time No Known Allergies Allergy Verified 02/06/25 05:34 Course Orders Category Date Time Status CT abdomen pelvis wo con Stat Exams 06/24/25 02:53 Taken CBC Stat Lab 06/24/25 03:40 Completed Comprehensive Metabolic Panel Stat Lab 06/24/25 03:40 Completed Lipase Stat Lab 06/24/25 03:40 Completed Urinalysis Stat Lab 06/24/25 02:50 Completed Ketorolac Inj [Toradol Inj] Med 06/24/25 05:30 Discontinued 30 mg IVP X1 ONE Morphine* Inj Med 06/24/25 05:30 Discontinued 4 mg IVP X1 ONE Ondansetron Inj [Zofran Inj] Med 06/24/25 05:30 Discontinued 4 mg IVP X1 ONE Ondansetron Odt [Zofran Odt] Med 06/24/25 04:39 Discontinued 4 mg PO X1 ONE Sodium Chloride 0.9% 1000 ml [Ns] 1,000 ml Med 06/24/25 05:30 Active IV 999 mls/hr Tamsulosin HCl [Flomax] Med 06/24/25 05:30 Discontinued 0.4 mg PO X1 ONE Vital Signs Vital signs: Vital Signs Temperature 98.2 F 06/24/25 02:40 Pulse Rate 55 L 06/24/25 02:40 Respiratory Rate 18 06/24/25 02:40 Blood Pressure 142/83 H 06/24/25 02:40 Pulse Oximetry (%) 97 06/24/25 02:40 Oxygen Delivery Method Room Air 06/24/25 02:40 Abdominal Pain MDM Medications / Prescriptions Medication administrations:: Medication Administration History Sodium Chloride (Ns) 1,000 mls @ 999 mls/hr IV .Q1H1M ONE Stop: 06/24/25 06:30 Discontinued Medications Ketorolac Tromethamine (Ketorolac Inj 30 Mg/Ml Vial) 30 mg IVP X1 ONE Stop: 06/24/25 05:31 Morphine Sulfate (Morphine Sulf Inj 4 Mg/Ml Vial) 4 mg IVP X1 ONE Stop: 06/24/25 05:31 Ondansetron HCl (Ondansetron Odt 4 Mg Tabrap) 4 mg PO X1 ONE; Protocol Stop: 06/24/25 04:40 Last Admin: 06/24/25 05:02 Dose: 4 mg Documented By: AC Ondansetron HCl (Ondansetron Inj 2 Mg/Ml Inj 2 Ml) 4 mg IVP X1 ONE; Protocol Stop: 06/24/25 05:31 Tamsulosin HCl (Tamsulosin Hcl 0.4 Mg Capsule) 0.4 mg PO X1 ONE Stop: 06/24/25 05:31 Discharge Plan Plan Patient Disposition: HOME (Self Care) Patient condition on transfer: Stable Prescriptions/Referrals Prescriptions/Med Rec: New hydrocodone-acetaminophen 5-325 mg tablet 1 tab PO Q6H MDD max 4 tabs per day PRN (Reason: pain) Qty: 20 0RF tamsulosin 0.4 mg capsule 0.4 mg PO QDAY 10 Days Qty: 10 0RF ondansetron 4 mg tablet,disintegrating 4 mg PO Q8H Qty: 20 0RF No Action ibuprofen 600 MG tablet 800 mg PO Q6HR PRN (Reason: PAIN) hydrocodone-acetaminophen [[place]] 5-325 mg tablet 1 tab PO QID MDD 3 PRN (Reason: pain) Qty: 10 0RF ibuprofen 800 mg tablet 800 mg PO TID PRN (Reason: pain) Qty: 30 0RF hydrocodone-acetaminophen [Bob White] 5-325 mg tablet 1 tab PO BID MDD 10mg PRN (Reason: pain) Qty: 10 0RF erythromycin 5 mg/gram (0.5 %) ointment 0.5 inch OPHTHALMIC TID Qty: 3.5 0RF ibuprofen 800 mg tablet 800 mg PO TID PRN (Reason: pain) Qty: 30 0RF clindamycin HCl 300 mg capsule 300 mg PO QID Qty: 40 0RF ibuprofen 800 mg tablet 800 mg PO TID PRN (Reason: pain) Qty: 30 0RF hydrocodone-acetaminophen 5-325 mg tablet 1 tab PO BID MDD 10 PRN (Reason: pain) Qty: 10 0RF ibuprofen [IBU] 800 mg tablet 800 mg PO Q6H PRN (Reason: pain) Qty: 30 0RF tamsulosin 0.4 mg capsule 0.4 mg PO QDAY Qty: 14 0RF ibuprofen 600 mg tablet 600 mg PO Q6H PRN (Reason: pain) Qty: 30 0RF Referrals: Bry Tsang PA-C [Primary Care Provider] - In 1 week Berny Ward MD [Physician, Urology] - 06/25/25 Referral Note: For further evaluation and treatment of ureteral stone and hydronephrosis Problem List Clinical Impression: Ureteral stone, Hydronephrosis, Hepatosplenomegaly Patient/Caregiver Discharge Instructions Education Materials: Tests for Liver Disease, Identifying Kidney Stones, Kidney Stones Your Evaluation, Understanding Hydronephrosis Additional Instructions: Follow-up with your primary care physician in 2 days for reevaluation and to be referred to urologist for further evaluation and treatment of your ureteral stone and hydronephrosis and to be referred to screen operator for your hepa tosplenomegaly it is very important to see your urologist on Wednesday for further evaluation and treatment for any worsening symptoms or any emergent concerns such as unable to repeat hematuria fever chills severe pain return to the emergency room immediately or call 911 take your medication as directed keep hydrated Pedialyte Gatorade for hydration is advised Print Language: Slovak Stand Alone Forms: Dalia Award Info., Patient Portal Info Letter PA/CHOCO Supervising Physician PA/CHOCO Supervising Physician: Dr. Tineo
[2025-06-24] MEDS: KETOROLAC INJ 30 MG/ML VIAL IVP (05:57)
[2025-06-24] MEDS: MORPHINE SULF INJ 4 MG/ML VIAL IVP (05:58)
[2025-06-24] MEDS: ONDANSETRON INJ 2 MG/ML INJ 2 ML 4 MG IVP (05:58)
[2025-06-24] MEDS: SODIUM CHLORIDE 0.9% 1000 ML 1,000 ML 999 ML IV (05:58)
[2025-06-24] MEDS: TAMSULOSIN HCL 0.4 MG CAPSULE PO (05:58)
[2025-06-24 06:41] VITALS: BP 148/84; PULSE 64; RESP 18; TEMP 36.6; O2SAT 99
== END 2025-06-24 06:43 | disposition home or self-care (01) ==
PROVIDERS: Nurse Practitioner Family; Emergency Provider Emergency Medicine; PCP Physician Assistant
DX: N13.2 Hydronephrosis with renal and ureteral calculous obstruction (principal); R16.2 Hepatomegaly with splenomegaly, not elsewhere classified; Z87.442 Personal history of urinary calculi
CPT/HCPCS: 36415; 74176; 80053; 81001; 83690; 85025; 96374; 96375; 99283; J1885; J2270; J2405; J7030; Q0162; A9270